=== PATIENT | male | born 1950 | race Caucasian/White ===

== ENCOUNTER 2023-06-01 06:58 | Outpatient (CLI) | payer MEDICARE ==
[2023-06-01] MEDS ORDERED: albuterol 2.5 MG/3 ML nebule NEB ONE (08:50)
[2023-06-01 09:04] VITALS: PULSE 68; RESP 18; O2SAT 93
[2023-06-01 09:15] VITALS: PULSE 68
--- NOTE | 2023-07-06 09:33 | NUR ---
LATE ENTRY CHARGE FOR PRE AND POST PFT, ROXANA GASTELUM FORGOT TO CHARGE PATIENT. Addendum: 07/06/23 at 0934 by Juan David Chapa RT Amended: Links added.
== END 2023-06-01 23:59 | disposition home or self-care (01) ==
LOC: RT 06:58
PROVIDERS: ATTEND Internal Medicine Pulmonary Disease
DX: R94.2 Abnormal results of pulmonary function studies (principal); R05.9 Cough, unspecified
CPT/HCPCS: 94727; 94729